=== PATIENT | female | born 1970 | race African-American/Black ===

== ENCOUNTER → 2016-09-20 | Outpatient (CLI) | payer BC ==
[2015-03-04 01:01] VITALS: BP 110/75
--- NOTE | 2016-09-20 09:46 | RAD ---
Chest, 2 views, 09/20/2016: History: Chronic cough, shortness of breath The heart size and pulmonary vascularity are normal. No pulmonary infiltrates are seen. There is no evidence of pleural fluid IMPRESSION: No acute cardiopulmonary abnormality is detected.
== END | disposition home or self-care (01) ==
LOC: RAD 09:06
PROVIDERS: ATTEND Internal Medicine Pulmonary Disease
DX: R05 Cough (principal)
CPT/HCPCS: 71020

== ENCOUNTER → 2016-09-21 | Outpatient (CLI) | payer BC ==
[2015-03-04 01:01] VITALS: BP 110/75
== END | disposition home or self-care (01) ==
LOC: LAB 15:37
PROVIDERS: ATTEND Internal Medicine Critical Care Medicine
DX: L94.0 Localized scleroderma [morphea] (principal)
CPT/HCPCS: 36415; 86235

== ENCOUNTER → 2017-01-23 | Outpatient (CLI) | payer BC ==
[2015-03-04 01:01] VITALS: BP 110/75
--- NOTE | 2017-01-23 09:31 | RAD ---
Indication persistent cough. Wheezing. Noncontrast imaging through the chest was performed. No prior CT imaging of the chest is available. Imaging through the upper abdomen is unremarkable. The thoracic aorta is unremarkable. The mediastinum appears normal. There is no dominant soft tissue mass. There is no acute parenchymal infiltrate. IMPRESSION: Normal study PQRS Compliance Statement: One or more of the following individualized dose reduction techniques were utilized for this examination: 1. Automated exposure control 2. Adjustment of the mA and/or kV according to patient size 3. Use of iterative reconstruction technique
== END | disposition home or self-care (01) ==
LOC: CT 08:46
PROVIDERS: ATTEND Internal Medicine Critical Care Medicine
DX: R05 Cough (principal); R06.2 Wheezing
CPT/HCPCS: 71250